=== PATIENT | male | born 1960 | race Caucasian/White ===

== ENCOUNTER 2017-03-02 14:28 | Emergency (ER) | payer OTHER ==
[~2017-03-02] VITALS: Ht 160 cm; Wt 62.3 kg
[2017-03-02 14:55] VITALS: BP 124/91
[2017-03-02] MEDS ORDERED: ALPRAZOLAM TAB 0.5MG (14:59)
--- NOTE | 2017-03-02 14:59 | NUR ---
bed 03 *
--- NOTE | 2017-03-02 14:59 | NUR ---
Patient ambulated to bed 02.
--- NOTE | 2017-03-02 15:15 | NUR ---
56/M BIB BROTHER WITH C/O ANXIETY TODAY WITH RIGHT FLANK PAIN 01/10. DENIES PAIN AT THIS TIME. NO TENDERNESS NOTED UPON PALPATION. DOES NOT APPEAR ANXIOUS, BUT BROTHER STS IS ANXIOUS. HX; ANXIETY. RX; LORAZEPAM. PT STS LAST DOSE AT 1000 AND GEOGRAPHICAL HISTORIAN. URINE CUP GIVEN FOR SAMPLE.
--- NOTE | 2017-03-02 15:55 | NUR ---
PT FEELING ANXIOUS AT THIS TIME CHARACTERIZED BY TAPPING FOOT VIGOROUSLY ON GROUND, HUNCHED OVER IN BROTHERS ARMS AND RED IN THE FACE. ER MD MADE AWARE. PT SWADDLED IN WARM BLANKET. LIGHTS TURNED OFF AND WAS INSTRUCTED TO CLOSE EYES TAKING LONG DEEP BREATHS. PT BILL INTERVENTION.
--- NOTE | 2017-03-02 16:06 | NUR ---
Dr. Jansen evaluating patient at bedside.
[2017-03-02] MEDS ORDERED: KETOROLAC 60 MG/2 ML VIAL IM ONE (16:10)
--- NOTE | 2017-03-02 16:38 | NUR ---
ORANGE SURVEY GIVEN TO PT.
--- NOTE | 2017-03-02 16:46 | NUR ---
Patient discharged with v/s stable. Written and verbal after care instructions given and explained. Patient alert, oriented and PT AND BROTHER verbalized understanding of instructions. Ambulatory with steady gait WITH BROTHER. All questions addressed prior to discharge. ID band removed. Patient advised to follow up with PMD. Rx of ATARAX AND MOTRIN 600MG/TAB given. Patient/BROTHER educated on indication of medication including possible reaction and side effects. Opportunity to ask questions provided and answered.
[2017-03-02 16:47] VITALS: BP 128/44
== END 2017-03-02 16:46 | disposition home or self-care (01) ==
LOC: MED 14:28
DX: F41.9 Anxiety disorder, unspecified (principal); M79.1 Myalgia
CPT/HCPCS: 81002; 96372; 99284; J1885